=== PATIENT | male | born 1995 | race Caucasian/White ===

== ENCOUNTER 2017-03-07 22:18 | Emergency (ER) | payer OTHER ==
[2017-03-07 22:57] VITALS: BP 142/77; PULSE 78; TEMP 98.7; BMI 29.8
[2017-03-07] MEDS ORDERED: SULFAMETHOXAZOLE/TRIMETHOPRIM 800MG/160MG D.S. TABLET PO ONE (23:43)
[2017-03-07] MEDS ORDERED: HYDROCORTISONE 0.5% TOPICAL CREAM 30 GM TUBE TP ONE (23:43)
--- NOTE | 2017-03-07 23:49 | PDOC ---
History of Present Illness - General History Source: Patient Exam Limitations: No Limitations <Juan Carlos Reina - Last Filed: 03/07/17 23:53> - General History Source: Patient Exam Limitations: No Limitations - History of Present Illness Initial Comments: 03/07/17 23:57 The patient is a 21 year old male, with no significant past medical history, who presents to the emergency department with a rash under the left armpit for the past 3 days. He reports that the armpit is irritated and erythematous in nature. He denies any discharge or bleeding. The patient denies fever, chills, nausea, vomit, diarrhea and constipation. Allergies: None Past surgical history: None reported Social history: No alcohol, tobacco or drug use reported <Alexander Richardson - Last Filed: 03/07/17 23:57> - General Chief Complaint: Rash Stated Complaint: RASH Time Seen by Provider: 03/07/17 23:34 Past History - Past Medical History Asthma: Yes - Surgical History Appendectomy: Yes - Psycho/Social/Smoking Cessation Hx Anxiety: No Suicidal Ideation: No Smoking History: Never smoked Have you smoked in the past 12 months: No Information on smoking cessation initiated: No Hx Alcohol Use: No Drug/Substance Use Hx: No Substance Use Type: None <Juan aCrlos Reina - Last Filed: 03/07/17 23:53> <Alexander Richardson - Last Filed: 03/07/17 23:57> - Past Medical History Allergies/Adverse Reactions: Allergies Allergy/AdvReac Type Severity Reaction Status Date / Time No Known Allergies Allergy Verified 03/07/17 22:56 Home Medications: Ambulatory Orders Hydrocortisone 0.5% Cream [Hytone 0.5% Cream -] 1 applic TP BID #1 tube Sulfamethoxazole/Trimethoprim [Bactrim Ds -] 1 tab PO BID #14 tablet 03/07/17 Review of Systems - Review of Systems Able to Perform ROS?: Yes Comments:: 03/07/17 23:57 GENERAL/CONSTITUTIONAL: No fever or chills. No weakness. HEAD, EYES, EARS, NOSE AND THROAT: No change in vision. No ear pain or discharge. No sore throat. CARDIOVASCULAR: No chest pain or shortness of breath RESPIRATORY: No cough, wheezing, or hemoptysis. GASTROINTESTINAL: No nausea, vomiting, diarrhea or constipation. GENITOURINARY: No dysuria, frequency, or change in urination. MUSCULOSKELETAL: No joint or muscle swelling or pain. No neck or back pain. SKIN: +Left armpit rash. NEUROLOGIC: No headache, vertigo, loss of consciousness, or change in strength/ sensation. ENDOCRINE: No increased thirst. No abnormal weight change HEMATOLOGIC/LYMPHATIC: No anemia, easy bleeding, or history of blood clots. ALLERGIC/IMMUNOLOGIC: No hives or skin allergy. <Alexander Richardson - Last Filed: 03/07/17 23:57> *Physical Exam - Vital Signs Last Vital Signs Temp Pulse Resp BP Pulse Ox 98.7 F 78 18 142/77 100 03/07/17 22:54 03/07/17 22:54 03/07/17 22:54 03/07/17 22:54 03/07/17 22:54 <Juan Carlos Reina - Last Filed: 03/07/17 23:53> - Vital Signs Last Vital Signs Temp Pulse Resp BP Pulse Ox 98.7 F 78 18 142/77 100 03/07/17 22:54 03/07/17 22:54 03/07/17 22:54 03/07/17 22:54 03/07/17 22:54 - Physical Exam Comments: 03/07/17 23:57 GENERAL: Awake, alert, and fully oriented, in no acute distress HEAD: No signs of trauma, normocephalic, atraumatic EYES: PERRLA, EOMI, sclera anicteric, conjunctiva clear ENT: Auricles normal inspection, hearing grossly normal, nares patent, oropharynx clear without exudates. Moist mucosa EXTREMITIES: Normal inspection, Normal range of motion, no edema. No clubbing or cyanosis. NEUROLOGICAL: Cranial nerves II through XII grossly intact. Normal speech, normal gait, no focal sensorimotor deficits SKIN: +Left armpit skin irritation and mild erythema sensative to palapation and midly tender. <Alexander Richardson - Last Filed: 03/07/17 23:57> Medical Decision Making - Medical Decision Making 03/07/17 23:43 A portion of this note was written by my scribe, under my supervision. 21 year old male with past medical history of asthma presents with left armpit irritation and pain in the left armpit x 3 days. noted that his left armpit was itching. Started to scratch and pull at his armpit hair. Noticed skin irritation and mild skin irritation and erythema with mild drainage. No fevers. Came into ED for evaluation. Appears to have skin irritation from scratching. Will prescribe hydrocortisone cream BID. however, given the mild erythema, may have developed very early cellulitis. Will prescribe bactrim. Well-appearing. Nontoxic. Follow up with PMD <Juan Carlos Reina - Last Filed: 03/07/17 23:53> *DC/Admit/Observation/Transfer - Discharge Dispostion Admit: No <Juan Carlos Reina - Last Filed: 03/07/17 23:53> - Attestations Scribe Attestion: 03/07/17 23:57 Documentation prepared by Alexander Richardson, acting as senior medical director for Juan Carlos Reina MD <Alexander Richardson - Last Filed: 03/07/17 23:57> Diagnosis at time of Disposition: Rash and nonspecific skin eruption - Discharge Dispostion Disposition: HOME - Prescriptions Prescriptions: Sulfamethoxazole/Trimethoprim [Bactrim Ds -] 1 tab PO BID #14 tablet Hydrocortisone 0.5% Cream [Hytone 0.5% Cream -] 1 applic TP BID #1 tube - Referrals Referrals: STAFF,NOT ON [Primary Care Provider] - - Patient Instructions Printed Discharge Instructions: DI for Rash Additional Instructions: Please apply a hydrocortisone cream every 12 hours for the next week. Please take the bactrim (antibiotic) every 12 hours for the next week. If you notice that your rash is worsening despite taking the medications, please call your doctor or return to the ER for further evaluation.
[2017-03-08] MEDS ORDERED: SULFAMETHOXAZOLE/TRIMETHOPRIM 800MG/160MG D.S. TABLET ONE (00:45)
== END 2017-03-08 01:11 | disposition home or self-care (01) ==
LOC: SUPCPDRO 22:18 → JER 22:18
DX: R21 Rash and other nonspecific skin eruption (principal)
CPT/HCPCS: 99281-25

== ENCOUNTER 2017-05-25 15:42 | Emergency (ER) | payer SELFPAY ==
[2017-05-25 15:48] VITALS: BP 140/82; PULSE 80; TEMP 97.9; BMI 30.7
--- NOTE | 2017-05-25 17:30 | PDOC ---
History of Present Illness - General Chief Complaint: Cold Symptoms Stated Complaint: YELLOW MUCAS/HEAD PAIN/sinus Time Seen by Provider: 05/25/17 15:59 History Source: Patient - History of Present Illness Timing/Duration: reports: other Associated Symptoms: reports: facial pain, nasal congestion, nasal drainage. denies: cough, earache, fever/chills, sore throat Past History - Past Medical History Allergies/Adverse Reactions: Allergies Allergy/AdvReac Type Severity Reaction Status Date / Time No Known Allergies Allergy Verified 05/25/17 15:48 Home Medications: Ambulatory Orders Amoxicillin/Potassium Clav [Augmentin 875-125 Tablet] 1 each PO BID #14 tablet 05/25/17 Pseudoephedrine HCl [Sudafed] 60 mg PO Q6H #15 tablet 05/25/17 Asthma: Yes - Surgical History Appendectomy: Yes - Psycho/Social/Smoking Cessation Hx Anxiety: No Suicidal Ideation: No Smoking History: Never smoked Have you smoked in the past 12 months: No Information on smoking cessation initiated: No Hx Alcohol Use: No Drug/Substance Use Hx: No Substance Use Type: None Review of Systems - Review of Systems Constitutional: No: Chills, Fever HEENTM: Yes: Nose Congestion. No: Ear Pain, Throat Pain Respiratory: No: Cough Neurological: No: Headache, Dizziness *Physical Exam - Vital Signs Last Vital Signs Temp Pulse Resp BP Pulse Ox 97.9 F 80 19 140/82 100 05/25/17 15:45 05/25/17 15:45 05/25/17 15:45 05/25/17 15:45 05/25/17 15:45 - Physical Exam General Appearance: Yes: Appropriately Dressed. No: Apparent Distress HEENT: positive: Normal Voice, Other (yellow secretion in nares b/l, ?minimal ttp over maxillary sinuses b/l w/ some discomfort to same on forward bending) Neck: positive: Supple. negative: Lymphadenopathy (R), Lymphadenopathy (L) Respiratory/Chest: negative: Respiratory Distress Integumentary: positive: Dry, Warm Neurologic: positive: Fully Oriented, Alert, Normal Mood/Affect Medical Decision Making - Medical Decision Making 05/25/17 17:32 21 yo M, no sig hx, here w/ purulent, yellow "clumpy" b/l nasal discharge w/ congestion x 1 month[address] [facility] 2 weeks ago for same and intermittent epistaxis and states he was discharged without clear dx or medications. States since then, has developed facial pain over cheeks b/l. No GANDHI otherwise and no f/ c. See exam Sinusitis -dc w/ abx and sudafed -ent f/u as needed *DC/Admit/Observation/Transfer Diagnosis at time of Disposition: Sinusitis Qualifiers: Sinusitis location: unspecified location Chronicity: unspecified Qualified Code (s): J32.9 - Chronic sinusitis, unspecified - Discharge Dispostion Disposition: HOME Condition at time of disposition: Good - Prescriptions Prescriptions: Amoxicillin/Potassium Clav [Augmentin 875-125 Tablet] 1 each PO BID #14 tablet Pseudoephedrine HCl [Sudafed] 60 mg PO Q6H #15 tablet - Patient Instructions Printed Discharge Instructions: Sinusitis Additional Instructions: Take medications as directed and follow up with Dr Webb of ENT in 2 weeks
== END 2017-05-25 17:35 | disposition home or self-care (01) ==
LOC: JERFT 15:42
DX: J32.9 Chronic sinusitis, unspecified (principal)
CPT/HCPCS: 99281-25

== ENCOUNTER 2018-04-03 01:57 | Emergency (ER) | payer OTHER ==
[2018-04-03 02:40] VITALS: BP 129/65; PULSE 83; TEMP 98.7; BMI 25.7
--- NOTE | 2018-04-03 03:17 | PDOC ---
History of Present Illness - General Chief Complaint: Bite Stated Complaint: BITE Time Seen by Provider: 04/03/18 02:28 History Source: Patient Exam Limitations: No Limitations - History of Present Illness Initial Comments: CHIEF COMPLAINT: 22 y/o male with itchy rash to left forearm. HISTORY OF PRESENT ILLNESS: The patient states he thinks he was bitten by something 8 days ago. 4 days ago he was seen at [facility] and given an rx for augmentin. He has taken the augmentin for 3 days but feels the bite is getting worse. He denies fever, streaking. Vital signs on arrival are within normal limits. REVIEW OF SYSTEMS: GENERAL/CONSTITUTIONAL: No fever/chills. No weakness. No weight change. MUSCULOSKELETAL: No joint or muscle swelling or pain. No neck or back pain. SKIN: +itchy rash to left forearm. NEUROLOGIC: No headache, vertigo, loss of consciousness, or loss of sensation. PHYSICAL EXAM: VITAL_SIGNS: within normal limits GENERAL_APPEARANCE: alert, cooperative, no obvious discomfort. MENTAL_STATUS: speech clear, oriented X 3, responds appropriately to questions. NEURO: motor intact and sensory intact in injured extremity. EXTREMITIES: 5cm x 3cm raised, erythematous plaque with 1cm in diameter central darker region to left posterior middle forearm. No open wound. No fluctuance. No streaking. Full flexion, extension, pronation and supination of left forearm. SKIN: warm, dry, good color. Past History - Past Medical History Allergies/Adverse Reactions: Allergies Allergy/AdvReac Type Severity Reaction Status Date / Time No Known Allergies Allergy Verified 04/03/18 02:39 Home Medications: Ambulatory Orders Amoxicillin/Potassium Clav [Augmentin 875-125 Tablet] 1 each PO BID #14 tablet 05/25/17 Pseudoephedrine HCl [Sudafed] 60 mg PO Q6H #15 tablet 05/25/17 Asthma: Yes - Surgical History Appendectomy: Yes - Suicide/Smoking/Psychosocial Hx Smoking History: Never smoked Have you smoked in the past 12 months: No Information on smoking cessation initiated: No Hx Alcohol Use: No Drug/Substance Use Hx: No Substance Use Type: None *Physical Exam - Vital Signs Last Vital Signs Temp Pulse Resp BP Pulse Ox 98.7 F 83 18 129/65 100 04/03/18 02:30 04/03/18 02:30 04/03/18 02:30 04/03/18 02:30 04/03/18 02:30 Medical Decision Making - Medical Decision Making A/P: 22 y/o male with possible spider bite to left forearm. Has taken 3 days of augmentin. No fever, no streaking. full ROM of affected arm. Suggested patient apply benadryl cream and continue Augmentin. Did inform him symptoms may worsen before they improve but spider bites are usually self limiting but may take 3-4 weeks to resolve. Instructed him to return to the ER with any worsening or concerning symptoms. The patient verbalizes understanding of all instructions, has no further questions and is awaiting discharge. *DC/Admit/Observation/Transfer Diagnosis at time of Disposition: Bite - Discharge Dispostion Disposition: HOME Condition at time of disposition: Good - Referrals - Patient Instructions Printed Discharge Instructions: DI for Insect Bites and Stings Additional Instructions: Discharge Instructions: -Continue taking Augmentin as prescribed until completed. -You can apply over the counter Benadryl cream -Keep covered to prevent friction -Return to the ER with any worsening or concerning symptoms - Post Discharge Activity
== END 2018-04-03 03:30 | disposition home or self-care (01) ==
LOC: JER 01:57
DX: S50.862A Insect bite (nonvenomous) of left forearm, initial encounter (principal); W57.XXXA Bitten or stung by nonvenomous insect and other nonvenomous arthropods, initial encounter; Y93.9 Activity, unspecified; Y92.9 Unspecified place or not applicable; J45.909 Unspecified asthma, uncomplicated
CPT/HCPCS: 99281-25

== ENCOUNTER 2019-01-04 04:42 | Emergency (ER) | payer SELFPAY ==
[2019-01-04 05:09] VITALS: BP 146/97; PULSE 85; TEMP 98.5; BMI 29.0
[2019-01-04 05:13] LABS: URINE APPEARANCE CLOUDY; URINE BILIRUBIN NEGATIVE (<2.0 mg/dL); URINE COLOR DKYELLOW; URINE GLUCOSE (UA) NEGATIVE (NEGATIVE); URINE KETONE NEGATIVE (NEGATIVE); URINE LEUK ESTERASE NEGATIVE (NEGATIVE); URINE NITRITE NEGATIVE (NEGATIVE); URINE PROTEIN 2+ (NEGATIVE); URINE UROBILINOGEN NEGATIVE mg/dL (0.2-1.0)
[2019-01-04 05:18] LABS: URINE MUCUS RARE
--- NOTE | 2019-01-04 05:39 | PDOC ---
Attending Attestation - Resident Resident Name: Harry Pickering - ED Attending Attestation I have performed the following: I have examined & evaluated the patient, The case was reviewed & discussed with the resident, I agree w/resident's findings & plan - HPI HPI: 01/05/19 03:44 Pt comes with hematuria and he thinks that it is a kidney stone - Physicial Exam PE: 01/05/19 03:45 Agree with resident exam - Medical Decision Making 01/05/19 03:45 Pt has hematuria. But he has resolution of stone, and no radiologic evidence of stone; he likely passed a stone and we will have him follow with urology.
[2019-01-04 05:56] LABS: HEMATOCRIT 42.6 % (35.4-49); HEMOGLOBIN 15.1 GM/dL (11.7-16.9); MCH 31.7 pg (25.7-33.7); MCHC 35.5 g/dl (32.0-35.9); MEAN CELL VOLUME 89.4 fl (80-96); MEAN PLT VOLUME 7.7 fl (7.5-11.1); PLATELET COUNT 271 K/MM3 (134-434); RBC 4.77 M/mm3 (4.00-5.60); RDW 12.8 % (11.9-15.9); WHITE BLOOD COUNT 8.7 K/mm3 (4.0-10.0)
[2019-01-04 06:24] LABS: ALBUMIN 4.3 g/dl (3.4-5.0); ALK PHOS 101 U/L (45-117); ANION GAP 7 MMOL/L (8-16); BILIRUBIN,TOTAL 0.8 mg/dL (0.2-1); BLOOD UREA NITROGEN 13 mg/dL (7-18); CALCIUM 8.6 mg/dL (8.5-10.1); CHLORIDE 107 mmol/L (98-107); CO2 27 mmol/L (21-32); CREATININE 0.8 mg/dL (0.55-1.3); GLUCOSE,RANDOM 97 mg/dL (74-106); POTASSIUM 3.8 mmol/L (3.5-5.1); SGOT/AST 34 U/L (15-37); SGPT/ALT 100 U/L (13-61); SODIUM 142 mmol/L (136-145); TOT PROT 7.4 g/dl (6.4-8.2)
--- NOTE | 2019-01-04 06:25 | PDOC ---
History of Present Illness - General Chief Complaint: Urinary Problem Stated Complaint: URINARY PROBLEM Time Seen by Provider: 01/04/19 05:26 History Source: Patient Exam Limitations: No Limitations - History of Present Illness Initial Comments: 01/04/19 06:22 Patient is a 23M with no significant medical history here today complaining of blood in his urine that started this morning. Patient states that he had this happen once 3 weeks ago. Denies recent illness. Endorses some mild back pain. Denies fevers, chills, nausea, vomiting, dysuria. Denies chest pain, abdominal pain, shortness of breath. Past History - Past Medical History Allergies/Adverse Reactions: Allergies Allergy/AdvReac Type Severity Reaction Status Date / Time No Known Allergies Allergy Verified 01/04/19 04:55 Home Medications: Ambulatory Orders Pseudoephedrine HCl [Sudafed] 60 mg PO Q6H #15 tablet 05/25/17 Asthma: Yes COPD: No - Surgical History Appendectomy: Yes - Immunization History Immunization Up to Date: Yes - Suicide/Smoking/Psychosocial Hx Smoking History: Never smoked Have you smoked in the past 12 months: No Information on smoking cessation initiated: No Hx Alcohol Use: No Drug/Substance Use Hx: No Substance Use Type: None Review of Systems - Review of Systems Comments:: 01/04/19 06:23 GENERAL/CONSTITUTIONAL: No fever or chills. No weakness. HEAD, EYES, EARS, NOSE AND THROAT: No change in vision. No ear pain or discharge. No sore throat. CARDIOVASCULAR: No chest pain or shortness of breath RESPIRATORY: No cough, wheezing, or hemoptysis. GASTROINTESTINAL: No nausea, vomiting, diarrhea or constipation. GENITOURINARY: No dysuria, frequency, +blood in urine MUSCULOSKELETAL: No joint or muscle swelling or pain. No neck or back pain. SKIN: No rash NEUROLOGIC: No headache, vertigo, loss of consciousness, or change in strength/ sensation. ENDOCRINE: No increased thirst. No abnormal weight change ALLERGIC/IMMUNOLOGIC: No hives or skin allergy. *Physical Exam - Vital Signs Last Vital Signs Temp Pulse Resp BP Pulse Ox 98.5 F 85 20 146/97 99 01/04/19 04:45 01/04/19 04:45 01/04/19 04:45 01/04/19 04:45 01/04/19 04:45 - Physical Exam Comments: 01/04/19 06:24 GENERAL: Awake, alert, and fully oriented, in no acute distress HEAD: No signs of trauma, normocephalic, atraumatic EYES: PERRLA, EOMI, sclera anicteric, conjunctiva clear ENT: Auricles normal inspection, hearing grossly normal, nares patent, oropharynx clear without exudates. Moist mucosa NECK: Normal ROM, supple, no lymphadenopathy, JVD, or masses LUNGS: No distress, speaks full sentences, clear to auscultation bilaterally HEART: Regular rate and rhythm, normal S1 and S2, no murmurs, rubs or gallops, peripheral pulses normal and equal bilaterally. ABDOMEN: Soft, nontender, normoactive bowel sounds. No guarding, no rebound. No masses EXTREMITIES: Normal inspection, Normal range of motion, no edema. No clubbing or cyanosis. NEUROLOGICAL: Cranial nerves II through XII grossly intact. Normal speech, normal gait, no focal sensorimotor deficits SKIN: Warm, Dry, normal turgor, no rashes or lesions noted. Moderate Sedation - Procedure Monitoring Vital Signs: Procedure Monitoring Vital Signs Temperature 98.5 F 01/04/19 04:45 Pulse Rate 85 01/04/19 04:45 Respiratory Rate 20 01/04/19 04:45 Blood Pressure 146/97 01/04/19 04:45 O2 Sat by Pulse Oximetry (%) 99 01/04/19 04:45 ED Treatment Course - LABORATORY CBC & Chemistry Diagram: 01/04/19 05:37 01/04/19 05:25 - ADDITIONAL ORDERS Additional order review: Laboratory Results 01/04/19 04:58 Urine Color Dkyellow Urine Appearance Cloudy Urine pH 6.0 Ur Specific [place] 1.026 Urine Protein 2+ H Urine Glucose (UA) Negative Urine Ketones Negative Urine Blood 3+ H Urine Nitrite Negative Urine Bilirubin Negative Urine Urobilinogen Negative Ur Leukocyte Esterase Negative Urine WBC (Auto) 12 Urine RBC (Auto) 1434 Urine Mucus Rare 01/04/19 05:37 RBC 4.77 MCV 89.4 MCHC 35.5 RDW 12.8 MPV 7.7 Medical Decision Making - Medical Decision Making 01/04/19 06:24 Patient is 23M here today with reported hematuria. Vitals normal and stable. Patient not requiring any pain control, do not believe that clinically relevant kidney stone is in process. Will evaluate for uti, anemia, screen for kidney function. 01/04/19 06:49 CMP normal. CBC normal. UA shows hematuria. CK normal. Unclear etiology of this time for hematuria, but no indication for further workup. Will discharge with urology follow up. Return precautions given. *DC/Admit/Observation/Transfer Diagnosis at time of Disposition: Hematuria - Discharge Dispostion Disposition: HOME Condition at time of disposition: Good Decision to Admit order: No - Referrals Referrals: Katy Raya MD [Primary Care Provider] - Jim Hernandez MD [Staff Physician] - - Patient Instructions Printed Discharge Instructions: DI for Hematuria Additional Instructions: Please follow up with Urology this week. Please return if you have any new, worsening or concerning symptoms, especially fevers and increasing pain. - Post Discharge Activity
== END 2019-01-04 06:55 | disposition home or self-care (01) ==
LOC: JER 04:42
DX: R31.9 Hematuria, unspecified (principal)
CPT/HCPCS: 36415; 80053; 81003; 81015; 82550; 85027; 87086; 99282-25

== ENCOUNTER 2020-05-18 06:50 | Day surgery (SDC) | payer OTHER ==
[2020-05-17 09:20] VITALS: BMI 29.8
--- NOTE | 2020-05-18 07:47 | HP ---
History & Physical Update - History History: No Change - Physical Physical: No Change - Assessment Assessment: No Change - Plan Plan: No Change
--- NOTE | 2020-05-18 07:48 | OP ---
Operative Note - Note: Operative Date: 05/18/20 Pre-Operative Diagnosis: R renal calculus Operation: ESWL R Findings: R renal calculi x 2 Post-Operative Diagnosis: Same as Pre-op Surgeon: Beni Peres Anesthesiologist/BELLHOP CAPTAIN: Jim Newton Anesthesia: Fractional Estimated Blood Loss (mls): 0 Operative Report Dictated: Yes
[2020-05-18] MEDS ORDERED: MIDAZOLAM HCL 2 MG/2 ML SINGLE DOSE VIAL ONE (07:51)
[2020-05-18] MEDS ORDERED: PROPOFOL 20 ML ONE (08:00)
[2020-05-18 10:09] VITALS: BP 123/66; PULSE 67; TEMP 97.5
--- NOTE | 2020-05-18 12:29 | OP ---
DATE OF OPERATION: 05/18/2020 PREOPERATIVE DIAGNOSIS: Right renal calculus. POSTOPERATIVE DIAGNOSIS: Right renal calculus. PROCEDURE: Extracorporeal shock wave lithotripsy, right. SURGEON: Beni Pond MD FINANCE AND ADMINISTRATION MANAGER: None. ANESTHESIA: IV sedation. ANESTHESIOLOGIST: Jim Newton MD SPECIMENS: None. CULTURES: None. DRAINS: None. ESTIMATED BLOOD LOSS: None. COMPLICATIONS: None. DESCRIPTION OF PROCEDURE: Patient brought in the operating room, placed on the operating table in the supine position. After administration of intravenous sedation, patient was positioned over the treatment head, and under fluoroscopic and ultrasound guidance, approximately 5-mm right mid renal calculus was identified, targeted, and delivered 2500 shocks of maximum kilovoltage with excellent fragmentation. There was an additional lower pole stone of approximately 4 mm which will require an additional ESWL. He tolerated the procedure well, transferred to the recovery room in stable condition. BENI POND M.D. [id number]
== END 2020-05-18 11:12 | disposition home or self-care (01) ==
LOC: JASU-SURG 06:50
PROVIDERS: ATTEND Urology
PROC: 0TF3XZZ Fragmentation in Right Kidney Pelvis, External Approach (ICD-10-PCS; principal; 2020-05-18 09:00)
DX: N20.0 Calculus of kidney (principal)

== ENCOUNTER 2024-07-08 04:05 | Day surgery (SDC) | payer OTHER ==
[2024-07-07 09:20] VITALS: BMI 30.7
[2024-07-08] MEDS ORDERED: MIDAZOLAM HCL 2 MG/2 ML SINGLE DOSE VIAL ONE (08:15)
[2024-07-08] MEDS ORDERED: ONDANSETRON 4 MG/2 ML VIAL ONE (08:18)
[2024-07-08] MEDS ORDERED: KETOROLAC TROMETHAMINE 30 MG/1 ML VIAL ONE (08:18)
[2024-07-08] MEDS ORDERED: PROPOFOL 20 ML ONE (08:23)
[2024-07-08] MEDS ORDERED: PROMETHAZINE HCL 25 MG/1 ML VIAL IVPB PRN (08:38)
[2024-07-08] MEDS ORDERED: ONDANSETRON 4 MG/2 ML VIAL IVPUSH PRN (08:38)
[2024-07-08] MEDS ORDERED: oxyCODONE HCL 5 MG TABLET PO PRN ×2 (08:38)
[2024-07-08] MEDS ORDERED: ACETAMINOPHEN 1000 MG/100 ML BAG IVPB ONE (08:39)
[2024-07-08] MEDS ORDERED: LACTATED RINGERS SOLUTION 1,000 ML IV SCH (08:45)
[2024-07-08 09:45] VITALS: TEMP 97.8
[2024-07-08 10:41] VITALS: BP 114/52; PULSE 58; RESP 16
== END 2024-07-08 10:52 | disposition home or self-care (01) ==
LOC: JASU-SURG 04:05
PROVIDERS: ATTEND Urology
PROC: 0TF4XZZ Fragmentation in Left Kidney Pelvis, External Approach (ICD-10-PCS; principal; 2024-07-08 08:15)
DX: N20.0 Calculus of kidney (principal)